=== PATIENT | female | born 1955 | race Two or more races ===

== ENCOUNTER 2018-04-15 12:53 | Outpatient (CLI) | payer OTHER | END 2018-04-15 12:56 | disposition home or self-care (01) | LOC: RAD 12:53 | DX: Z76.89 Persons encountering health services in other specified circumstances (principal); M23.232 Derangement of other medial meniscus due to old tear or injury, left knee; M25.552 Pain in left hip ==

== ENCOUNTER 2018-06-09 12:04 | Outpatient (CLI) | payer OTHER | END 2018-06-09 13:44 | disposition home or self-care (01) | LOC: LAB 12:04 | DX: I49.8 Other specified cardiac arrhythmias (principal); D64.89 Other specified anemias; E88.89 Other specified metabolic disorders; D68.8 Other specified coagulation defects; N39.0 Urinary tract infection, site not specified; Z22.322 Carrier or suspected carrier of Methicillin resistant Staphylococcus aureus ==

== ENCOUNTER 2018-06-17 05:40 | Day surgery (SDC) | payer OTHER ==
[~2018-06-17 05:40] MED LIST: ALDACTAZIDE 251 EACH PO; ALDACTONE50 MG PO; COZAAR50 MG PO; FLONASE16 GM; SKELAXIN800 MG PO; TRAMADOL HCL E100 M1 PO
== END 2018-06-17 14:30 | disposition home or self-care (01) ==
LOC: CIR.AMB 05:40
DX: M23.222 Derangement of posterior horn of medial meniscus due to old tear or injury, left knee (principal); M17.12 Unilateral primary osteoarthritis, left knee; M12.262 Villonodular synovitis (pigmented), left knee; M22.42 Chondromalacia patellae, left knee

== ENCOUNTER 2018-07-27 17:10 | Outpatient (CLI) | payer OTHER | END 2018-07-27 17:33 | disposition home or self-care (01) | LOC: LAB 17:10 | DX: M25.48 Effusion, other site (principal) ==

== ENCOUNTER 2018-09-14 13:28 | Emergency (ER) | payer OTHER ==
[~2018-09-14] VITALS: Ht 152.4 cm; Wt 79.4 kg
[2018-09-14] MEDS ORDERED: ATIVAN1 M1 (14:20)
[2018-09-14] MEDS ORDERED: LOSARTAN POTASS25 MG (14:20)
[2018-09-14] MEDS ORDERED: ZOLOFT25 MG (14:20)
[2018-09-14] MEDS ORDERED: CELECOXIB100 MG PO (16:16)
[2018-09-14] MEDS ORDERED: SKELAXIN800 MG PO (16:16)
== END 2018-09-14 16:55 | disposition home or self-care (01) ==
LOC: ER 13:28
DX: S83.8X2A Sprain of other specified parts of left knee, initial encounter (principal); S43.492A Other sprain of left shoulder joint, initial encounter; X50.3XXA Overexertion from repetitive movements, initial encounter; Y93.89 Activity, other specified; Y92.89 Other specified places as the place of occurrence of the external cause; Y99.8 Other external cause status

== ENCOUNTER 2019-01-11 12:09 | Outpatient (CLI) | payer OTHER ==
[~2019-01-11 12:09] MED LIST changes: +ATIVAN1 M1; +CELECOXIB100 MG PO; +LOSARTAN POTASS25 MG; +ZOLOFT25 MG
== END 2019-01-11 12:11 | disposition home or self-care (01) ==
LOC: RAD 12:09
DX: M25.511 Pain in right shoulder (principal)